=== PATIENT | female | born 1990 | race African-American/Black ===

== ENCOUNTER 2017-09-29 19:59 | Emergency (ER) | payer BC, OTHER ==
[~2017-09-29] VITALS: Ht 167.6 cm; Wt 58.7 kg
[~2017-09-29 19:59] MED LIST: ASPI-390 PO; MTR600X PO; PRENTAB26 PO
[2017-09-29 20:07] VITALS: BP 124/60; PULSE 88; TEMP 36.7; Ht 167.6 cm; Wt 58.7 kg
[2017-09-29 20:10] VITALS: O2SAT 98
[2017-09-29] MEDS ORDERED: IBUP1CAP9 PO (20:16)
[2017-09-29] MEDS ORDERED: MULT-513 PO (20:17)
[2017-09-29] MEDS ORDERED: IBUPROFEN 200 MG TAB PO STA (20:23)
--- NOTE | 2017-09-29 20:52 | EMERGENCY ROOM VISIT NOTE ---
History First contact with patient: 20:12 Chief Complaint: THROAT PAIN/INJURY Stated Complaint: POSSIBLE STREP History of Present Illness The patient is a 27 year old female who presents to the Emergency Room with complaints of a sore throat and fatigue for the past 2 days. Patient denies any significant runny nose or cough. She reports that her daughter was also recently sick. The patient reports that she has had strep throat in the past. She has not taken any medicines for pain since this morning, and rates her discomfort a 10 out of 10. Review of Systems 10 system review was performed and was negative except for pertinent positives and negatives as indicated in history of present illness Past Medical/Surgical History Medical Problems: (1) Cystitis Nos (2) Hx-Penicillin Allergy Family History Cancer Diabetes mellitus Social History Smoking Status: Never Smoker Alcohol Use: occasionally Drug Use: none Marital Status: single Housing Status: lives with family Occupation Status: unemployed Current/Historical Medications Scheduled Multivitamins/Minerals (Mvi With Minerals), 1 TAB PO DAILY Scheduled PRN Ibuprofen (Ibuprofen), 400 MG PO Q6 PRN for pt Physical Exam Vital Signs Date Time Temp Pulse Resp B/P (MAP) Pulse Ox O2 Delivery O2 Flow Rate FiO2 09/29/17 20:10 98 Room Air 09/29/17 20:07 36.7 88 17 124/60 98 Room Air Physical Exam CONSTITUTIONAL: Healthy and well nourished. Alert and oriented X 3 with flat affect. Patient does not appear in any acute distress. HEENT: Normocephalic, atraumatic. Pupils equal, round and reactive. TMs are normal bilaterally. No rhinorrhea. No conjunctival injection. OROPHARYNX: Mild posterior pharyngeal erythema without tonsillar hypertrophy or exudates. Negative trismus. No evidence for Karthik's angina or retropharyngeal abscess. LYMPHATICS: No cervical chain adenopathy. NECK: Full active range of motion without discomfort. No nuchal rigidity. RESPIRATORY: Clear to auscultation bilaterally with no wheezing, crackles, rhonchi or stridor. CARDIOVASCULAR: Regular rate and rhythm with no murmurs, rubs or gallops. INTEGUMENTARY: No rash or other significant dermatologic conditions noted. NEUROLOGIC: No focal neurologic deficits noted. Medical Decision & Procedures Laboratory Results Rapid strep was performed and was negative. Strep cultures are pending. Medications Administered Medications (Trade) Dose Ordered Sig/Angella Route Start Time Stop Time Status Last Admin Dose Admin Ibuprofen (Advil Tab) 600 mg NOW STAT PO 09/29/17 20:23 09/29/17 20:24 DC 09/29/17 20:35 600 MG ED Course Patient history and physical exam were performed. Nurse's notes were reviewed. Vital signs were reviewed and were normal. The patient is afebrile and not tachycardic. The patient was administered ibuprofen 600 mg for pain. Rapid strep was performed and was negative. The patient was advised that we will call her with any positive strep cultures. Otherwise she was advised that her symptoms are likely secondary to a virus. The patient was encouraged alternate ibuprofen and Tylenol for pain. A sore throat handout was provided. She was encouraged to follow-up with her PCP if symptoms are not improving within the next 7-10 days. The patient was happy with plan of care, voiced understanding of all discharge instructions, and rated her discomfort a 6 out of 10 at the conclusion of my exam. Medical Decision Medication Reconcilliation Current Medication List: was personally reviewed by me Blood Pressure Screening Patient's blood pressure: Normal blood pressure Impression Primary Impression: Acute pharyngitis Departure Information Referrals David Rivas M.D. (MEDICAL) (PCP) Patient Instructions My [facility] Problem Qualifiers Primary Impression: Acute pharyngitis Pharyngitis/tonsillitis etiology: unspecified etiology Qualified Codes: J02.9 - Acute pharyngitis, unspecified
== END 2017-09-29 20:58 | disposition home or self-care (01) ==
LOC: C.EDB 20:00 → C.EDD 20:58
DX: J02.9 Acute pharyngitis, unspecified (principal)